=== PATIENT | male | born 1960 | race Caucasian/White ===

== ENCOUNTER 2020-08-24 08:18 | Inpatient (IN) | payer SELFPAY ==
[2020-08-24] VITALS (7 sets, daily range): BP systolic 99–110; BP diastolic 57–62
[~2020-08-24] VITALS: Ht 170.2 cm; Wt 54.9 kg
[2020-08-24 09:10] LABS: BASOPHILS % 0.2 % (0.0-1.0); EOSINOPHILS # (AUTO) 0.1 (0.0-0.4); EOSINOPHILS % 0.4 % (0.0-6.0); LYMPHOCYTES # (AUTO) 1.5 (1.0-3.2); LYMPHOCYTES % 8.8 % (18.0-39.1); MEAN CORPUSCULAR HEMOGLOBIN 14.8 pg (28-32); MEAN CORPUSCULAR HGB CONC 23.1 g/dL (31-35); MONOCYTES # (AUTO) 0.7 (0.2-0.8); MONOCYTES % 4.1 % (4.4-11.3); NEUTROPHILS # (AUTO) 14.4 (2.1-6.9); NEUTROPHILS % 85.8 % (38.7-80.0); PLATELET COUNT 424 x10e3/uL (140-360); RED CELL DISTRIBUTION WIDTH 19.7 % (11.7-14.4)
[2020-08-24 09:22] LABS: HEMOGLOBIN 3.7 g/dL (14.0-18.0)
[2020-08-24] MEDS ORDERED: SODIUM CHLORIDE 0.9% 250ML 250 ML IV ONE ×2 (09:30→16:45)
[2020-08-24 09:36] LABS: ALANINE AMINOTRANSFERASE 10 IU/L (0-55); ALBUMIN 2.5 g/dL (3.5-5.0); ALBUMIN/GLOBULIN RATIO 0.7 (0.8-2.0); ALKALINE PHOSPHATASE 75 IU/L (40-150); BLOOD UREA NITROGEN 10 mg/dL (7-26); BUN/CREATININE RATIO 11 (6-25); CALCIUM 7.8 mg/dL (8.4-10.2); CARBON DIOXIDE 22 mmol/L (22-29); CHLORIDE 103 mmol/L (98-107); CREATININE, SERUM 0.92 mg/dL (0.72-1.25); EST GLOMERULAR FILTRATION RATE > 60 ML/MIN (60-); GLUCOSE 120 mg/dL (74-118); SODIUM 136 mmol/L (136-145)
[2020-08-24 10:55] LABS: FERRITIN 12.62 ng/mL (21.81-274.66)
[2020-08-24] MEDS ORDERED: SODIUM CHLORIDE 0.9% 250ML 250 ML ONE ×2 (13:06→23:42)
[2020-08-24] MEDS: ACETAMINOPHEN 325 MG TAB PO PRN ×2 (14:29→23:35)
[2020-08-24 15:11] LABS: CLARITY,URINE SL CLOUDY (CLEAR); COLOR,URINE YELLOW (YELLOW); KETONES,URINE NEGATIVE (NEGATIVE); LEUKOCYTE ESTERASE ,URINE NEGATIVE (NEGATIVE); NITRITE,URINE NEGATIVE (NEGATIVE); PROTEIN,URINE DIPSTICK NEGATIVE (NEGATIVE); URINE UROBILINOGEN 1 mg/dL (0.2 - 1)
[2020-08-24 15:24] LABS: WBC,URINE (MAN) 0-5 /HPF (0-5)
[2020-08-24 15:47] LABS: BASOPHILS % 0.2 % (0.0-1.0); EOSINOPHILS % 0.2 % (0.0-6.0); LYMPHOCYTES # (AUTO) 1.4 (1.0-3.2); LYMPHOCYTES % 9.5 % (18.0-39.1); MEAN CORPUSCULAR HEMOGLOBIN 16.8 pg (28-32); MEAN CORPUSCULAR HGB CONC 25.9 g/dL (31-35); MONOCYTES # (AUTO) 0.9 (0.2-0.8); NEUTROPHILS # (AUTO) 12.6 (2.1-6.9); NEUTROPHILS % 83.4 % (38.7-80.0); PLATELET COUNT 315 x10e3/uL (140-360); RED CELL DISTRIBUTION WIDTH 22.2 % (11.7-14.4)
[2020-08-24 15:50] LABS: HEMATOCRIT 14.3 % (38.2-49.6); HEMOGLOBIN 3.7 g/dL (14.0-18.0)
[2020-08-24] MEDS ORDERED: DOCUSATE SODIUM 100 MG CAP PO PRN (16:30)
[2020-08-24] MEDS ORDERED: ONDANSETRON HCL INJ 2MG/ML 2ML 2 MG/ML VIAL IV PRN (16:30)
[2020-08-24] MEDS: FERROUS SULFATE 325 MG TAB PO SCH (16:56)
[2020-08-24] MEDS: PANTOPRAZOLE SOD 40 MG TABEC PO SCH (16:56)
[2020-08-24] MEDS ORDERED: SODIUM CHLORIDE 0.9% 50ML 50 ML ONE (17:07)
[2020-08-24] MEDS ORDERED: IOPAMIDOL 370 MG/ML 200 ML INFUS..BTL INJ ONE (17:07)
[2020-08-24] MEDS ORDERED: ZOLPIDEM TARTRATE 5 MG TAB PO PRN (21:00)
[2020-08-25] VITALS (16 sets, daily range): BP systolic 91–124; BP diastolic 54–78
[2020-08-25] MEDS ORDERED: FUROSEMIDE INJ 10 MG/ML 2 ML VIAL IV ONE (06:55)
[2020-08-25 07:27] LABS: BASOPHILS % 0.3 % (0.0-1.0); EOSINOPHILS # (AUTO) 0.1 (0.0-0.4); EOSINOPHILS % 0.7 % (0.0-6.0); HEMATOCRIT 24.3 % (38.2-49.6); LYMPHOCYTES # (AUTO) 1.2 (1.0-3.2); LYMPHOCYTES % 8.3 % (18.0-39.1); MEAN CORPUSCULAR HEMOGLOBIN 20.8 pg (28-32); MEAN CORPUSCULAR HGB CONC 28.8 g/dL (31-35); MEAN CORPUSCULAR VOLUME 72.1 fL (81-99); MONOCYTES # (AUTO) 0.7 (0.2-0.8); MONOCYTES % 5.1 % (4.4-11.3); NEUTROPHILS # (AUTO) 12.2 (2.1-6.9); NEUTROPHILS % 84.9 % (38.7-80.0); PLATELET COUNT 337 x10e3/uL (140-360); RED BLOOD COUNT 3.37 x10e6/uL (4.3-5.7); RED CELL DISTRIBUTION WIDTH 25.2 % (11.7-14.4)
[2020-08-25 08:06] LABS: ANION GAP 11.9 mmol/L (8-16); BLOOD UREA NITROGEN 8 mg/dL (7-26); BUN/CREATININE RATIO 9 (6-25); CALCIUM 7.9 mg/dL (8.4-10.2); CARBON DIOXIDE 24 mmol/L (22-29); CHLORIDE 104 mmol/L (98-107); CREATININE, SERUM 0.93 mg/dL (0.72-1.25); EST GLOMERULAR FILTRATION RATE > 60 ML/MIN (60-); GLUCOSE 107 mg/dL (74-118); POTASSIUM 3.9 mmol/L (3.5-5.1); SODIUM 136 mmol/L (136-145)
[2020-08-25] MEDS: FERROUS SULFATE 325 MG TAB PO SCH ×2 (08:35→16:20)
[2020-08-25] MEDS: PANTOPRAZOLE SOD 40 MG TABEC PO SCH (08:35)
[2020-08-25] MEDS: CYANOCOBALAMIN INJ 1,000 MCG/ML VIAL IM SCH (08:51)
[2020-08-25] MEDS: SODIUM FERRIC GLUCONATE COMPLX 125 MG in SODIUM CHLORIDE 0.9% 100 ML 100 ML IV SCH (08:51)
[2020-08-25] MEDS ORDERED: IRON SUCROSE 100 MG in SODIUM CHLORIDE 0.9% 100 ML 100 ML IV SCH (09:00)
[2020-08-25] MEDS ORDERED: SODIUM CHLORIDE 0.9% 250ML 250 ML ONE ×2 (11:22→16:08)
[2020-08-25 22:11] LABS: BASOPHILS # (AUTO) 0.1 (0.0-0.1); BASOPHILS % 0.3 % (0.0-1.0); EOSINOPHILS # (AUTO) 0.2 (0.0-0.4); EOSINOPHILS % 1.3 % (0.0-6.0); HEMATOCRIT 27.9 % (38.2-49.6); HEMOGLOBIN 8.6 g/dL (14.0-18.0); LYMPHOCYTES # (AUTO) 1.9 (1.0-3.2); LYMPHOCYTES % 13.3 % (18.0-39.1); MEAN CORPUSCULAR HEMOGLOBIN 23.1 pg (28-32); MEAN CORPUSCULAR HGB CONC 30.8 g/dL (31-35); MONOCYTES # (AUTO) 0.9 (0.2-0.8); MONOCYTES % 6.3 % (4.4-11.3); NEUTROPHILS # (AUTO) 11.3 (2.1-6.9); NEUTROPHILS % 78.1 % (38.7-80.0); PLATELET COUNT 323 x10e3/uL (140-360); RED BLOOD COUNT 3.72 x10e6/uL (4.3-5.7); RED CELL DISTRIBUTION WIDTH 24.3 % (11.7-14.4)
[2020-08-25] MEDS ORDERED: BISACODYL 5 MG TAB EC PO STA (22:49)
[2020-08-25] MEDS ORDERED: BISACODYL 5 MG TAB EC PO ONE (23:30)
[2020-08-26] VITALS (8 sets, daily range): BP systolic 118–133; BP diastolic 71–83
[2020-08-26] MEDS ORDERED: CITRATE OF MAGNESIA 300ML BOTTLE PO ONE ×3 (05:00→12:45)
[2020-08-26 06:55] LABS: BASOPHILS # (AUTO) 0.1 (0.0-0.1); BASOPHILS % 0.5 % (0.0-1.0); EOSINOPHILS # (AUTO) 0.2 (0.0-0.4); EOSINOPHILS % 1.7 % (0.0-6.0); HEMATOCRIT 32.3 % (38.2-49.6); HEMOGLOBIN 9.7 g/dL (14.0-18.0); LYMPHOCYTES # (AUTO) 1.6 (1.0-3.2); LYMPHOCYTES % 12.1 % (18.0-39.1); MEAN CORPUSCULAR HEMOGLOBIN 22.9 pg (28-32); MEAN CORPUSCULAR VOLUME 76.4 fL (81-99); MONOCYTES # (AUTO) 0.7 (0.2-0.8); MONOCYTES % 5.4 % (4.4-11.3); NEUTROPHILS # (AUTO) 10.7 (2.1-6.9); NEUTROPHILS % 79.6 % (38.7-80.0); PLATELET COUNT 346 x10e3/uL (140-360); RED BLOOD COUNT 4.23 x10e6/uL (4.3-5.7); RED CELL DISTRIBUTION WIDTH 24.8 % (11.7-14.4)
[2020-08-26] MEDS: PANTOPRAZOLE SOD 40 MG TABEC PO SCH (08:11)
[2020-08-26] MEDS: FERROUS SULFATE 325 MG TAB PO SCH ×2 (08:11→17:00)
[2020-08-26] MEDS: CYANOCOBALAMIN INJ 1,000 MCG/ML VIAL IM SCH (08:13)
[2020-08-26] MEDS: SODIUM FERRIC GLUCONATE COMPLX 125 MG in SODIUM CHLORIDE 0.9% 100 ML 100 ML IV SCH (10:03)
[2020-08-26] MEDS ORDERED: PROPOFOL IV EMULSION 10 MG/ML 20 ML VIAL ONE (13:16)
[2020-08-26] MEDS ORDERED: MIDAZOLAM HCL 2 MG/2 ML VIAL ONE (19:36)
[2020-08-26] MEDS ORDERED: FENTANYL CITRATE/PF 100MCG/2 ML INJ ONE (19:36)
[2020-08-27] VITALS (8 sets, daily range): BP systolic 105–138; BP diastolic 69–82
[2020-08-27] MEDS: FERROUS SULFATE 325 MG TAB PO SCH ×2 (08:12→17:36)
[2020-08-27] MEDS: CYANOCOBALAMIN INJ 1,000 MCG/ML VIAL IM SCH (08:12)
[2020-08-27] MEDS: PANTOPRAZOLE SOD 40 MG TABEC PO SCH (08:12)
[2020-08-27] MEDS: SODIUM FERRIC GLUCONATE COMPLX 125 MG in SODIUM CHLORIDE 0.9% 100 ML 100 ML IV SCH (09:44)
[2020-08-28] VITALS (8 sets, daily range): BP systolic 112–126; BP diastolic 73–86
[2020-08-28] MEDS: FERROUS SULFATE 325 MG TAB PO SCH ×2 (08:00→17:55)
[2020-08-28] MEDS: SODIUM FERRIC GLUCONATE COMPLX 125 MG in SODIUM CHLORIDE 0.9% 100 ML 100 ML IV SCH ×2 (08:01→09:34)
[2020-08-28] MEDS: PANTOPRAZOLE SOD 40 MG TABEC PO SCH (08:01)
[2020-08-28] MEDS: CYANOCOBALAMIN INJ 1,000 MCG/ML VIAL IM SCH (08:01)
[2020-08-28 11:09] LABS: INR 0.99; PROTHROMBIN TIME 13.7 seconds (11.9-14.5)
[2020-08-29] VITALS (7 sets, daily range): BP systolic 106–140; BP diastolic 63–79
[2020-08-29] MEDS: LACTATED RINGER'S 1,000 ML INJ SCH ×2 (01:15→14:35)
[2020-08-29 06:37] LABS: BASOPHILS # (AUTO) 0.1 (0.0-0.1); BASOPHILS % 0.5 % (0.0-1.0); EOSINOPHILS # (AUTO) 0.2 (0.0-0.4); EOSINOPHILS % 1.9 % (0.0-6.0); HEMATOCRIT 29.8 % (38.2-49.6); HEMOGLOBIN 8.9 g/dL (14.0-18.0); LYMPHOCYTES # (AUTO) 1.5 (1.0-3.2); LYMPHOCYTES % 14.1 % (18.0-39.1); MEAN CORPUSCULAR HEMOGLOBIN 23.2 pg (28-32); MEAN CORPUSCULAR HGB CONC 29.9 g/dL (31-35); MEAN CORPUSCULAR VOLUME 77.8 fL (81-99); MONOCYTES # (AUTO) 0.7 (0.2-0.8); MONOCYTES % 6.9 % (4.4-11.3); NEUTROPHILS # (AUTO) 7.9 (2.1-6.9); NEUTROPHILS % 76.1 % (38.7-80.0); PLATELET COUNT 315 x10e3/uL (140-360); RED BLOOD COUNT 3.83 x10e6/uL (4.3-5.7); RED CELL DISTRIBUTION WIDTH 26.6 % (11.7-14.4)
[2020-08-29 07:22] LABS: BLOOD UREA NITROGEN 10 mg/dL (7-26); BUN/CREATININE RATIO 13 (6-25); CALCIUM 7.8 mg/dL (8.4-10.2); CARBON DIOXIDE 25 mmol/L (22-29); CHLORIDE 103 mmol/L (98-107); EST GLOMERULAR FILTRATION RATE > 60 ML/MIN (60-); GLUCOSE 100 mg/dL (74-118); SODIUM 136 mmol/L (136-145)
[2020-08-29] MEDS: FERROUS SULFATE 325 MG TAB PO SCH ×3 (08:00→17:41)
[2020-08-29] MEDS: CYANOCOBALAMIN INJ 1,000 MCG/ML VIAL IM SCH ×2 (08:58→11:58)
[2020-08-29] MEDS: PANTOPRAZOLE SOD 40 MG TABEC PO SCH ×2 (08:58→11:59)
[2020-08-29] MEDS: SODIUM FERRIC GLUCONATE COMPLX 125 MG in SODIUM CHLORIDE 0.9% 100 ML 100 ML IV SCH ×2 (09:00→12:00)
[2020-08-29] MEDS ORDERED: ONDANSETRON HCL 4 MG ORAL DISINTEGRATING TAB PO PRN (14:00)
[2020-08-30] VITALS (8 sets, daily range): BP systolic 106–137; BP diastolic 66–92
[2020-08-30] MEDS: LACTATED RINGER'S 1,000 ML INJ SCH ×2 (05:30→17:34)
[2020-08-30] MEDS ORDERED: HEPARIN SOD (PORCINE) 1000 UNIT/ML SDV ONE (13:16)
[2020-08-30] MEDS ORDERED: BUPIVACAINE 0.25% 30ML SDV ONE ×2 (13:16→15:15)
[2020-08-30] MEDS ORDERED: SODIUM CHLORIDE 0.9% 100 ML ONE (13:17)
[2020-08-30] MEDS: SODIUM CHLORIDE 0.9% 250ML IRRIG IR SCH ×3 (16:00→23:55)
[2020-08-30] MEDS ORDERED: LIDOCAINE HCL 2% JELLY 5 ML TUBE ONE (16:22)
[2020-08-30] MEDS ORDERED: NEOSTIGMINE 1 MG/ML 10ML VIAL ONE (16:22)
[2020-08-30] MEDS ORDERED: ONDANSETRON HCL INJ 2MG/ML 2ML 2 MG/ML VIAL ONE (16:22)
[2020-08-30] MEDS ORDERED: GLYCOPYRROLATE INJ 0.2 MG/ML VIAL ONE (16:22)
[2020-08-30] MEDS ORDERED: ROCURONIUM BROMIDE 10 MG/ML 5ML VIAL IV ONE (16:22)
[2020-08-30] MEDS ORDERED: PROPOFOL IV EMULSION 10 MG/ML 20 ML VIAL ONE (16:22)
[2020-08-30] MEDS ORDERED: SEVOFLURANE INHAL SOLN 250 ML PEN BTL ONE (16:22)
[2020-08-30] MEDS ORDERED: DEXAMETHASONE SOD PHOS INJ 4 MG/ML VIAL ONE (16:22)
[2020-08-30] MEDS ORDERED: LIDOCAINE HCL 2% LOCAL INJ 5 ML SDV VIAL INJ ONE (16:22)
[2020-08-30] MEDS ORDERED: FENTANYL CITRATE/PF 100MCG/2 ML INJ ONE ×2 (17:08→19:50)
[2020-08-30] MEDS: HYDROMORPHONE 1MG/1ML INJ IV PRN ×2 (18:43→22:45)
[2020-08-30] MEDS: CEFOXITIN 1GM/0.9% NS 50ML 50 ML IV SCH (18:43)
[2020-08-30] MEDS ORDERED: MIDAZOLAM HCL 2 MG/2 ML VIAL ONE (19:50)
[2020-08-31] VITALS (9 sets, daily range): BP systolic 138–146; BP diastolic 73–84
[2020-08-31] MEDS: CEFOXITIN 1GM/0.9% NS 50ML 50 ML IV SCH ×4 (01:30→17:35)
[2020-08-31] MEDS: HYDROMORPHONE 1MG/1ML INJ IV PRN ×5 (03:20→22:02)
[2020-08-31] MEDS: SODIUM CHLORIDE 0.9% 250ML IRRIG IR SCH ×5 (04:00→20:00)
[2020-08-31] MEDS: LACTATED RINGER'S 1,000 ML INJ SCH ×3 (09:24→16:48)
[2020-08-31] MEDS: CYANOCOBALAMIN INJ 1,000 MCG/ML VIAL IM SCH (10:12)
[2020-08-31] MEDS: ONDANSETRON HCL INJ 2MG/ML 2ML 2 MG/ML VIAL IV PRN (22:02)
[2020-09-01] VITALS (8 sets, daily range): BP systolic 134–161; BP diastolic 77–91
[2020-09-01] MEDS: CEFOXITIN 1GM/0.9% NS 50ML 50 ML IV SCH ×4 (00:06→18:00)
[2020-09-01] MEDS: SODIUM CHLORIDE 0.9% 250ML IRRIG IR SCH ×3 (00:06→08:00)
[2020-09-01] MEDS: LACTATED RINGER'S 1,000 ML INJ SCH ×3 (01:46→20:07)
[2020-09-01] MEDS: HYDROMORPHONE 1MG/1ML INJ IV PRN ×5 (02:02→20:09)
[2020-09-01 06:04] LABS: BASOPHILS % 0.4 % (0.0-1.0); EOSINOPHILS # (AUTO) 0.2 (0.0-0.4); EOSINOPHILS % 2.8 % (0.0-6.0); HEMATOCRIT 31.4 % (38.2-49.6); HEMOGLOBIN 9.2 g/dL (14.0-18.0); LYMPHOCYTES # (AUTO) 1.4 (1.0-3.2); MEAN CORPUSCULAR HEMOGLOBIN 23.4 pg (28-32); MEAN CORPUSCULAR HGB CONC 29.3 g/dL (31-35); MEAN CORPUSCULAR VOLUME 79.7 fL (81-99); MONOCYTES # (AUTO) 0.4 (0.2-0.8); MONOCYTES % 5.7 % (4.4-11.3); NEUTROPHILS # (AUTO) 5.4 (2.1-6.9); NEUTROPHILS % 71.7 % (38.7-80.0); PLATELET COUNT 367 x10e3/uL (140-360); RED BLOOD COUNT 3.94 x10e6/uL (4.3-5.7); RED CELL DISTRIBUTION WIDTH 26.6 % (11.7-14.4)
[2020-09-01 06:30] LABS: ANION GAP 12.3 mmol/L (8-16); BLOOD UREA NITROGEN 7 mg/dL (7-26); BUN/CREATININE RATIO 7 (6-25); CALCIUM 8.3 mg/dL (8.4-10.2); CARBON DIOXIDE 25 mmol/L (22-29); CHLORIDE 103 mmol/L (98-107); CREATININE, SERUM 0.95 mg/dL (0.72-1.25); EST GLOMERULAR FILTRATION RATE > 60 ML/MIN (60-); GLUCOSE 96 mg/dL (74-118); POTASSIUM 4.3 mmol/L (3.5-5.1); SODIUM 136 mmol/L (136-145)
[2020-09-01] MEDS: IRON SUCROSE 100 MG in SODIUM CHLORIDE 0.9% 100 ML 100 ML IV SCH (09:41)
[2020-09-01] MEDS: CYANOCOBALAMIN INJ 1,000 MCG/ML VIAL IM SCH (09:41)
[2020-09-02] VITALS (7 sets, daily range): BP systolic 137–154; BP diastolic 81–89
[2020-09-02] MEDS: HYDROMORPHONE 1MG/1ML INJ IV PRN ×6 (00:13→21:03)
[2020-09-02] MEDS: CEFOXITIN 1GM/0.9% NS 50ML 50 ML IV SCH ×4 (00:15→16:39)
[2020-09-02] MEDS: LACTATED RINGER'S 1,000 ML INJ SCH ×3 (04:20→16:12)
[2020-09-02 06:23] LABS: BASOPHILS % 0.6 % (0.0-1.0); EOSINOPHILS # (AUTO) 0.2 (0.0-0.4); EOSINOPHILS % 4.2 % (0.0-6.0); HEMATOCRIT 27.9 % (38.2-49.6); HEMOGLOBIN 8.2 g/dL (14.0-18.0); LYMPHOCYTES # (AUTO) 0.9 (1.0-3.2); LYMPHOCYTES % 17.9 % (18.0-39.1); MEAN CORPUSCULAR HEMOGLOBIN 23.9 pg (28-32); MEAN CORPUSCULAR HGB CONC 29.4 g/dL (31-35); MEAN CORPUSCULAR VOLUME 81.3 fL (81-99); MONOCYTES # (AUTO) 0.2 (0.2-0.8); MONOCYTES % 4.8 % (4.4-11.3); NEUTROPHILS # (AUTO) 3.5 (2.1-6.9); NEUTROPHILS % 72.3 % (38.7-80.0); PLATELET COUNT 260 x10e3/uL (140-360); RED BLOOD COUNT 3.43 x10e6/uL (4.3-5.7); RED CELL DISTRIBUTION WIDTH 25.4 % (11.7-14.4)
[2020-09-02 06:50] LABS: ANION GAP 12.9 mmol/L (8-16); BLOOD UREA NITROGEN 5 mg/dL (7-26); BUN/CREATININE RATIO 7 (6-25); CALCIUM 7.8 mg/dL (8.4-10.2); CARBON DIOXIDE 25 mmol/L (22-29); CHLORIDE 103 mmol/L (98-107); EST GLOMERULAR FILTRATION RATE > 60 ML/MIN (60-); GLUCOSE 70 mg/dL (74-118); MAGNESIUM 1.7 MG/DL (1.3-2.1); PHOSPHORUS 3.8 MG/DL (2.3-4.7); POTASSIUM 3.9 mmol/L (3.5-5.1); SODIUM 137 mmol/L (136-145)
[2020-09-02] MEDS: IRON SUCROSE 100 MG in SODIUM CHLORIDE 0.9% 100 ML 100 ML IV SCH (08:55)
[2020-09-02] MEDS: CYANOCOBALAMIN INJ 1,000 MCG/ML VIAL IM SCH (08:55)
[2020-09-02] MEDS: ONDANSETRON HCL INJ 2MG/ML 2ML 2 MG/ML VIAL IV PRN (21:04)
[2020-09-03] VITALS (7 sets, daily range): BP systolic 141–163; BP diastolic 82–99
[2020-09-03] MEDS: ZOLPIDEM TARTRATE 5 MG TAB PO PRN ×2 (00:36→21:30)
[2020-09-03] MEDS: LACTATED RINGER'S 1,000 ML INJ SCH ×4 (00:37→21:30)
[2020-09-03] MEDS: HYDROMORPHONE 1MG/1ML INJ IV PRN ×6 (00:57→21:30)
[2020-09-03] MEDS: CEFOXITIN 1GM/0.9% NS 50ML 50 ML IV SCH ×4 (05:11→17:23)
[2020-09-03] MEDS: IRON SUCROSE 100 MG in SODIUM CHLORIDE 0.9% 100 ML 100 ML IV SCH (09:32)
[2020-09-03] MEDS: CYANOCOBALAMIN INJ 1,000 MCG/ML VIAL IM SCH (09:32)
[2020-09-03 09:52] LABS: BASOPHILS % 0.6 % (0.0-1.0); EOSINOPHILS # (AUTO) 0.3 (0.0-0.4); EOSINOPHILS % 5.8 % (0.0-6.0); HEMATOCRIT 28.6 % (38.2-49.6); HEMOGLOBIN 8.4 g/dL (14.0-18.0); LYMPHOCYTES # (AUTO) 0.9 (1.0-3.2); LYMPHOCYTES % 18.2 % (18.0-39.1); MEAN CORPUSCULAR HEMOGLOBIN 23.8 pg (28-32); MEAN CORPUSCULAR HGB CONC 29.4 g/dL (31-35); MONOCYTES # (AUTO) 0.3 (0.2-0.8); MONOCYTES % 5.6 % (4.4-11.3); NEUTROPHILS # (AUTO) 3.6 (2.1-6.9); NEUTROPHILS % 69.4 % (38.7-80.0); PLATELET COUNT 289 x10e3/uL (140-360); RED BLOOD COUNT 3.53 x10e6/uL (4.3-5.7); RED CELL DISTRIBUTION WIDTH 25.1 % (11.7-14.4)
[2020-09-03 10:24] LABS: ANION GAP 13.9 mmol/L (8-16); BLOOD UREA NITROGEN < 5 mg/dL (7-26); CARBON DIOXIDE 28 mmol/L (22-29); CHLORIDE 103 mmol/L (98-107); CREATININE, SERUM 0.78 mg/dL (0.72-1.25); EST GLOMERULAR FILTRATION RATE > 60 ML/MIN (60-); GLUCOSE 85 mg/dL (74-118); MAGNESIUM 1.8 MG/DL (1.3-2.1); PHOSPHORUS 3.2 MG/DL (2.3-4.7); POTASSIUM 3.9 mmol/L (3.5-5.1); SODIUM 141 mmol/L (136-145)
[2020-09-03 10:36] LABS: BUN/CREATININE RATIO 6 (6-25)
[2020-09-03] MEDS: ONDANSETRON HCL INJ 2MG/ML 2ML 2 MG/ML VIAL IV PRN (18:00)
[2020-09-04] VITALS (7 sets, daily range): BP systolic 127–152; BP diastolic 79–93
[2020-09-04] MEDS: HYDROMORPHONE 1MG/1ML INJ IV PRN ×5 (01:40→21:19)
[2020-09-04] MEDS: CEFOXITIN 1GM/0.9% NS 50ML 50 ML IV SCH ×5 (02:04→23:27)
[2020-09-04] MEDS ORDERED: SODIUM CHLORIDE FLUSH 10 ML SYR INJ PRN (07:30)
[2020-09-04] MEDS: IRON SUCROSE 100 MG in SODIUM CHLORIDE 0.9% 100 ML 100 ML IV SCH (07:58)
[2020-09-04] MEDS: CYANOCOBALAMIN INJ 1,000 MCG/ML VIAL IM SCH (08:57)
[2020-09-04] MEDS: ZOLPIDEM TARTRATE 5 MG TAB PO PRN (21:19)
[2020-09-05] VITALS: BP 133/91
[2020-09-05] MEDS: HYDROMORPHONE 1MG/1ML INJ IV PRN ×2 (01:14→05:15)
[2020-09-05 04:00] VITALS: BP 144/97
[2020-09-05] MEDS: CEFOXITIN 1GM/0.9% NS 50ML 50 ML IV SCH (05:15)
[2020-09-05] MEDS ORDERED: COLACE100 MG PO (06:10)
[2020-09-05] MEDS ORDERED: FERROUS SULFAT325 MG PO (06:10)
[2020-09-05] MEDS ORDERED: Cyanocobalamin Inj IM (06:10)
[2020-09-05] MEDS ORDERED: ZOFRAN4 MG PO (06:10)
[2020-09-05 07:43] VITALS: BP 132/86
[2020-09-05 07:49] VITALS: BP 132/86
[2020-09-05 09:13] LABS: BASOPHILS % 0.6 % (0.0-1.0); EOSINOPHILS # (AUTO) 0.2 (0.0-0.4); HEMATOCRIT 30.9 % (38.2-49.6); HEMOGLOBIN 9.1 g/dL (14.0-18.0); LYMPHOCYTES # (AUTO) 1.1 (1.0-3.2); LYMPHOCYTES % 20.4 % (18.0-39.1); MEAN CORPUSCULAR HGB CONC 29.4 g/dL (31-35); MEAN CORPUSCULAR VOLUME 81.5 fL (81-99); MONOCYTES # (AUTO) 0.4 (0.2-0.8); MONOCYTES % 7.4 % (4.4-11.3); NEUTROPHILS # (AUTO) 3.6 (2.1-6.9); NEUTROPHILS % 67.2 % (38.7-80.0); PLATELET COUNT 312 x10e3/uL (140-360); RED BLOOD COUNT 3.79 x10e6/uL (4.3-5.7); RED CELL DISTRIBUTION WIDTH 25.7 % (11.7-14.4)
[2020-09-05] MEDS: CYANOCOBALAMIN INJ 1,000 MCG/ML VIAL IM SCH (09:22)
[2020-09-05 09:42] LABS: ANION GAP 10.8 mmol/L (8-16); BLOOD UREA NITROGEN 5 mg/dL (7-26); BUN/CREATININE RATIO 6 (6-25); CALCIUM 7.7 mg/dL (8.4-10.2); CARBON DIOXIDE 29 mmol/L (22-29); CHLORIDE 104 mmol/L (98-107); CREATININE, SERUM 0.79 mg/dL (0.72-1.25); EST GLOMERULAR FILTRATION RATE > 60 ML/MIN (60-); GLUCOSE 116 mg/dL (74-118); MAGNESIUM 1.8 MG/DL (1.3-2.1); PHOSPHORUS 3.3 MG/DL (2.3-4.7); POTASSIUM 3.8 mmol/L (3.5-5.1); SODIUM 140 mmol/L (136-145)
[2020-09-05] MEDS ORDERED: ONDANSETRON HCL 4 MG ORAL DISINTEGRATING TAB PO PRN (10:00)
== END 2020-09-05 11:02 | disposition home or self-care (01) | DRG 329 ==
LOC: ER 09:24 → ERHOLD 10:19 → MED/SURG3 10:52
PROVIDERS: ADMIT Internal Medicine; ATTEND Internal Medicine
PROC: 30233N1 Transfusion of Nonautologous Red Blood Cells into Peripheral Vein, Percutaneous Approach (ICD-10-PCS; 2020-08-24)
PROC: 0DBK8ZX Excision of Ascending Colon, Via Natural or Artificial Opening Endoscopic, Diagnostic (ICD-10-PCS; principal; 2020-08-26 16:30)
PROC: 0DBN8ZX Excision of Sigmoid Colon, Via Natural or Artificial Opening Endoscopic, Diagnostic (ICD-10-PCS; 2020-08-30)
PROC: 02HV33Z Insertion of Infusion Device into Superior Vena Cava, Percutaneous Approach (ICD-10-PCS; 2020-08-30)
PROC: 0DTF0ZZ Resection of Right Large Intestine, Open Approach (ICD-10-PCS; 2020-08-30 13:30)
DX: C18.2 Malignant neoplasm of ascending colon (principal); E43 Unspecified severe protein-calorie malnutrition; C78.7 Secondary malignant neoplasm of liver and intrahepatic bile duct; Z68.1 Body mass index [BMI] 19.9 or less, adult; K57.90 Diverticulosis of intestine, part unspecified, without perforation or abscess without bleeding; K64.9 Unspecified hemorrhoids; Z20.822 Contact with and (suspected) exposure to COVID-19; D12.5 Benign neoplasm of sigmoid colon; D50.0 Iron deficiency anemia secondary to blood loss (chronic)
CPT/HCPCS: 36415; 45378; 45380; 45385; 71045; 74177; 76000; 80048; 80053; 81001; 82270; 82607; 82728; 82948; 83540; 83735; 83880; 84100; 84134; 84466; 84484; 85025; 85610; 86078; 86850; 86900; 86920; 88305; 88309; 88342; 93005; 96360; 96361; 99284; C1751; J1100; J1170; J1644; J1756; J1940; J2001; J2250; J2405; J2710; J2916; J3010; J3420; J7050; J7121; P9016; Q9967; U0002